=== PATIENT | male | born 1985 | race Caucasian/White ===

== ENCOUNTER 2016-11-11 06:57 | Emergency (ER) | payer OTHER ==
[2016-11-11 07:05] VITALS: BP 122/76; PULSE 60; RESP 16; TEMP 98.1; O2SAT 100
--- NOTE | 2016-11-11 07:45 | C.PDOC ---
History Of Present Illness 30 y/o male c/o right flank pain, dysuria and and difficulty urinating for a few days. pt reports he has had this pain and urinary infections in the past. pt is a poor historian, denies fever, no abdominal pain, one episode vomiting yesterday. Time Seen by Provider: 11/11/16 07:02 Chief Complaint (Nursing): Back Pain History/Exam Limitations: no limitations Onset/Duration Of Symptoms: Days (3) Current Symptoms Are (Timing): Still Present Quality Of Discomfort: "Pain" Severity: Mild Associated Symptoms: Other (urinary symptoms) Exacerbating Factor(s): Nothing Past Medical History Reviewed: Historical Data, Nursing Documentation, Vital Signs Vital Signs: Last Vital Signs Temp 98.1 F 11/11/16 07:02 Pulse 60 11/11/16 07:02 Resp 16 11/11/16 07:02 BP 122/76 11/11/16 07:02 Pulse Ox 100 11/11/16 11:04 - Medical History PMH: HTN Surgical History: No Surg Hx Family History: States: Unknown Family Hx - Social History Hx Tobacco Use: Yes Hx Alcohol Use: No Hx Substance Use: No - Immunization History Hx Tetanus Toxoid Vaccination: No Hx Influenza Vaccination: No Hx Pneumococcal Vaccination: No Review Of Systems Constitutional: Negative for: Fever, Chills Gastrointestinal: Positive for: Vomiting. Negative for: Nausea, Abdominal Pain Genitourinary: Positive for: Dysuria, Frequency Physical Exam - Physical Exam Appears: Non-toxic, No Acute Distress Skin: Warm, Dry Head: Atraumatic, Normacephalic Eye(s): bilateral: Normal Inspection Neck: Normal ROM Chest: Symmetrical, No Deformity, Tenderness (right flank) Cardiovascular: Rhythm Regular, No Murmur Respiratory: Normal Breath Sounds, No Rales, No Rhonchi, No Wheezing Gastrointestinal/Abdominal: Bowel Sounds, Soft, No Tenderness Back: Normal Inspection, No CVA Tenderness Male Genital: Normal Inspection, No Testicular Tenderness, No Testicular Swelling, No Inguinal Tenderness, No Scrotal Swelling, Circumcised, Other ( chaperoned by JACINDA Arce) Extremity: Normal ROM, No Pedal Edema, No Calf Tenderness ED Course And Treatment - Laboratory Results Result Diagrams: 11/11/16 07:44 11/11/16 07:44 O2 Sat by Pulse Oximetry: 100 - Other Rad Ribs and Chest RT X-Ray X-Ray: Viewed By Me, Read By Radiologist Interpretation: IMPRESSION: Unremarkable radiographs of the chest and right ribs. No right rib fracture. Medical Decision Making Medical Decision Making: pt with urinary symptoms, right flank pain; check ua, labs. 842 am pt with normal labs and urine. on re-eval, pt points to right lateral distal rib where pain is; no step off, no ecchymosis, no crepitus. will send for chest and ribs. 1101 am labs normal, xray normal, ua normal , pt medicated for pain and will follow up in clinic Disposition Counseled Patient/Family Regarding: Studies Performed, Diagnosis, Need For Followup - Disposition Referrals: [facility] [Outside] Disposition: HOME/ ROUTINE Disposition Time: 11:02 Condition: IMPROVED Additional Instructions: Follow up in medical clinic in the next few days. recommend you go downstairs today to make an appointment, Take ibupforen for pain as prescribed. 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
[2016-11-11 07:47] LABS: BASO # 0.1 K/uL (0.0-0.2); EOS # 0.7 K/uL (0.0-0.7); EOS % 6.5 % (0.0-4.0); HEMOGLOBIN 15.2 g/dL (12.0-18.0); LYMPH # 3.9 K/uL (1.0-4.3); LYMPH % 37.2 % (20.0-40.0); MEAN CELL VOLUME 86.6 fL (80.0-94.0); MEAN CORPUSCULAR HEMOGLOBIN 30.1 pg (27.0-31.0); MEAN CORPUSCULAR HGB CONC 34.8 g/dL (33.0-37.0); MEAN PLATELET VOLUME 7.5 fL (7.2-11.7); MONO # 0.7 K/uL (0.0-0.8); MONO % 6.6 % (0.0-10.0); NEUT # 5.1 K/uL (1.8-7.0); NEUT % 48.7 % (50.0-75.0); RBC 5.04 Mil/uL (4.40-5.90); RED CELL DISTRIBUTION WIDTH 12.2 % (11.5-14.5); WHITE BLOOD COUNT 10.5 K/uL (4.8-10.8)
[2016-11-11 07:52] LABS: URINE BILIRUBIN NEGATIVE (NEGATIVE); URINE BLOOD NEGATIVE (NEGATIVE); URINE CLARITY Clear (Clear); URINE COLOR Yellow (YELLOW); URINE GLUCOSE (UA) NORMAL (Normal); URINE LEUKOCYTE ESTERASE NEG Leu/uL (Negative); URINE NITRATE NEGATIVE (NEGATIVE); URINE PROTEIN NEGATIVE (NEGATIVE); URINE UROBILINOGEN NORMAL mg/dL (0.2-1.0)
[2016-11-11 08:06] LABS: AST/SGOT 24 U/L (17-59); GFR AFRICAN-AMERICAN > 60; GFR NON-AFRICAN AMERICAN > 60
[2016-11-11 08:07] LABS: ALB/GLOB RATIO 1.5 (1.0-2.1); ALT/SGPT 52 U/L (21-72); BLOOD UREA NITROGEN 16 mg/dL (9-20)
[2016-11-11 08:08] LABS: CALCIUM 8.2 mg/dl (8.6-10.4)
--- NOTE | 2016-11-11 09:43 | RAD ---
PROCEDURE: Radiographs of the Chest and Right Ribs. HISTORY: right rib pain, distal axillary COMPARISON: None available. TECHNIQUE: Frontal radiograph of the chest and multiple oblique radiographs of the right ribs were obtained. FINDINGS: RIGHT RIBS: No fracture or focal lesion visualized. LUNGS: Clear. PLEURA: No pneumothorax or pleural fluid. CARDIOVASCULAR: Normal sized heart. No pulmonary vascular congestion. OTHER FINDINGS: None. IMPRESSION: Unremarkable radiographs of the chest and right ribs. No right rib fracture.
== END 2016-11-11 11:05 | disposition home or self-care (01) ==
LOC: C.ER 06:57
DX: R07.81 Pleurodynia (principal)
CPT/HCPCS: 71101; 80053; 81001; 85025; 87491; 87591; 96374; 99283; J1885